=== PATIENT | male | born 1930 | race Caucasian/White ===

== ENCOUNTER 2017-08-02 09:50 | Emergency (ER) | payer OTHER ==
[~2017-08-02] VITALS: Ht 162.6 cm; Wt 63.5 kg
[2017-08-02] MEDS ORDERED: TERAZOSIN HCL2 M1 (10:53)
[2017-08-02] MEDS ORDERED: ZOCOR5 MG (10:53)
[2017-08-02] MEDS ORDERED: FOLIC ACID0.4 MG (10:53)
[2017-08-02] MEDS ORDERED: TERAZOSIN HCL1 M1 (10:53)
[2017-08-02] MEDS ORDERED: VITAMIN B-12250 MCG (10:54)
[2017-08-02] MEDS ORDERED: ASPIR-LOW81 MG (10:55)
== END 2017-08-02 13:20 | disposition home or self-care (01) ==
LOC: ER 09:50
DX: S40.011A Contusion of right shoulder, initial encounter (principal); S60.032A Contusion of left middle finger without damage to nail, initial encounter; S69.91XA Unspecified injury of right wrist, hand and finger(s), initial encounter; V19.9XXA Pedal cyclist (driver) (passenger) injured in unspecified traffic accident, initial encounter; Y93.89 Activity, other specified; Y92.89 Other specified places as the place of occurrence of the external cause; Y99.8 Other external cause status

== ENCOUNTER → 2020-12-11 | Outpatient (CLI) | payer OTHER ==
[~2020-12-11] MED LIST: ASPIR-LOW81 MG; FOLIC ACID0.4 MG; TERAZOSIN HCL1 M1; TERAZOSIN HCL2 M1; VITAMIN B-12250 MCG; ZOCOR5 MG
== END | disposition home or self-care (01) ==
LOC: RAD 17:39
PROVIDERS: ATTEND General Practice
DX: S80.00XA Contusion of unspecified knee, initial encounter (principal); Z91.81 History of falling; I13.10 Hypertensive heart and chronic kidney disease without heart failure, with stage 1 through stage 4 chronic kidney disease, or unspecified chronic kidney disease; Z68.23 Body mass index [BMI] 23.0-23.9, adult; R15.9 Full incontinence of feces; M17.0 Bilateral primary osteoarthritis of knee; N18.31 Chronic kidney disease, stage 3a; G30.1 Alzheimer's disease with late onset; E78.00 Pure hypercholesterolemia, unspecified; N52.8 Other male erectile dysfunction